=== PATIENT | male | born 1965 | race Caucasian/White ===

== ENCOUNTER → 2017-02-08 10:55 | Outpatient (CLI) | payer BC ==
[2016-07-14 08:43] VITALS: BMI 25.7
[~2017-02-08 10:55] MED LIST: CELEXA20 MG PO; FLOMAX0.4 MG PO; MIRALAX17 GM PO; MULTIPLE VITAMI1 TA1 PO; PROBIOTIC1 EAC1 PO; PROPRANOLOL HCL20 MG PO
== END | disposition home or self-care (01) ==
LOC: D.CT 10:55
DX: R10.9 Unspecified abdominal pain (principal)

== ENCOUNTER 2017-03-05 05:32 | Day surgery (SDC) | payer BC ==
[~2017-03-05] VITALS: Ht 190.5 cm; Wt 92.5 kg
--- NOTE | ~2017-03-05 | OP ---
PATIENT NAME: VERNA BARROW MEDICAL RECORD: [id number] :69 LOCATION:D[facility] ADMISSION DATE: SURGEON: RAFAEL LLAMAS MD DATE OF OPERATION: 03/05/2017 PREOPERATIVE DIAGNOSIS: Symptomatic gallstones. POSTOPERATIVE DIAGNOSES: Symptomatic gallstones with hepatomegaly and probable gallstone within the common bile duct, which was nonobstructing. Also, adhesions in the right lower quadrant from the patient's inguinal herniorrhaphy. PROCEDURES: 1. Laparoscopic cholecystectomy. 2. Intraoperative cholangiography without immediate surgeon interpretation. 3. 18-gauge core needle liver biopsies. SURGEON: Rafael Llamas MD. HOSPICE LIAISON: None. BLOOD LOSS: Minimal. ANESTHESIA: General. COMPLICATIONS: None. The risks, possible complications and alternatives to the procedure were explained to the patient. He elects to proceed. OPERATIVE COURSE: The patient was conveyed to the operating room on 03/05/2017. General anesthesia was induced by the anesthesia staff. The abdomen was sterilely prepped and draped. An incision was accomplished within the umbilicus. There was a small umbilical hernia, which was not incarcerated. I entered the peritoneal cavity through this umbilical hernia with a 12-mm trocar. CO2 insufflation was begun. Once a sufficient pneumoperitoneum had been achieved, a 5-mm trocar was inserted in the epigastrium. Another 5-mm trocar was inserted in the right upper quadrant. Another 5-mm trocar was inserted far laterally in the right upper quadrant. During insertion of the Veress needle and all trocars, there appeared to have been no injury to the bowels, any intraperitoneal or retroperitoneal structures. An abdominal survey was undertaken. There were some adhesions in the right lower quadrant. These were taken down sharply. An abdominal survey was undertaken. The indication for liver biopsy was hepatomegaly. I percutaneously accessed the right upper quadrant under laparoscopic guidance with an 18-gauge core needle liver biopsy device. Cores were obtained over the convexity of the liver. The biopsy sites were made hemostatic with the electrocautery. The gallbladder was grasped and retracted anteriorly. I advanced a cholangiogram trocar. I punctured the fundus of the gallbladder. I aspirated bile. I injected dye. Under real time fluoroscopy, static fluoroscopic images were obtained. These were sent to the radiologist. The radiologist called back in the room and confirmed that there was likely a stone in the cystic duct as well as a stone in the common bile duct. The common bile duct stone was, otherwise, not obstructing. OPERATIVE REPORT [id number] DANIALVERNA The cholangiogram trocar was removed. The gallbladder was grasped and retracted cephalad. The infundibulum was grasped and retracted laterally. Blunt dissection was begun in the triangle of Calot. One cystic artery and 1 cystic duct were identified. These were clipped multiply and divided between clips. The gallbladder was then excised from its bed in the liver. It was grasped and placed within Endobag retrieval device and withdrawn through the umbilical fascia defect. The 12-mm trocar was replaced and the abdomen reinsufflated. I irrigated and aspirated in the right upper quadrant. There was no bleeding even at a low pressure of 8. All the trocars were removed and the abdomen desufflated. The umbilical fascial defect was closed with a horizontal mattress of 0 Vicryl suture. The umbilical skin was closed with interrupted 4-0 Vicryl Rapide sutures. The other skin incisions were closed with interrupted intracuticular 3-0 Vicryls. Benzoin and Steri-Strips were applied. The patient was then extubated and conveyed to the post-anesthesia care unit where he was in stable condition. He will be dismissed home on a narcotic analgesic. I will see him in the office in 2-3 weeks. TRANSINT:[id number] Voice Confirmation ID: [id number] DOCUMENT ID: [id number] RAFAEL LLAMAS MD CC: GRECIA KEBEDE MD [id number] DICTATION DATE: 03/06/17917 SHOE IRONER: 03/06/171656 [facility] 03/05/17 [facility] [address] [place] [address]
--- NOTE | ~2017-03-05 | HP ---
PATIENT: VERNA BARROW MEDICAL RECORD: [id number] ACCOUNT: [id number] LOCATION:[facility] : 69 ADMISSION DATE: 03/05/17 HISTORY AND PHYSICAL EXAMINATION CHIEF COMPLAINT: Pain. HISTORY OF PRESENT ILLNESS: The patient has known gallstones. He has gastrointestinal issues including gastroparesis and also upper abdominal pain. I am going to plan for laparoscopic cholecystectomy and intraoperative cholangiogram and possible liver biopsy. The risks, possible complications and alternatives to procedure were explained to the patient. He elected to proceed. Discussion specifically included, but was not limited to, bleeding requiring emergency reoperation, infection, common ductal injury and an open procedure. HOME MEDICATIONS: Flomax, Prilosec, MiraLax, Celexa and Ultram. ALLERGIES: TO VALIUM AND PENICILLIN. PAST MEDICAL AND SURGICAL HISTORY: Gastroparesis, gastroesophageal reflux, arthritis, history of right inguinal hernia repair, migratory arthralgias, questionable sleep apnea, extremity injury. SOCIAL HISTORY: He is a smoker. REVIEW OF SYSTEMS: Negative for diabetes or thyroid problems. Review of systems is negative other than as is described above. PHYSICAL EXAMINATION: GENERAL: The patient does not appear acutely ill. He does not appear chronically ill. VITAL SIGNS: Reviewed. HEAD: External ears appear normal. EYES: Extraocular movements are intact. NECK: Trachea is midline. CHEST: No intercostal retractions. PULMONARY: Nonlabored, no stridor. ABDOMEN: Nontender. IMPRESSION: Symptomatic gallstones. PLAN: Laparoscopic cholecystectomy, intraoperative cholangiogram and possible liver biopsy. TRANSINT:[id number] Voice Confirmation ID: [id number] DOCUMENT ID: [id number] HISTORY AND PHYSICAL [id number] VERNA BARROW RAFAEL LLAMAS MD CC: GRECIA KEBEDE MD [id number] DICTATION DATE: 03/05/17 1013 LINEMAN A CLASS: 03/05/[address] [facility] [address] [place] [address]
[~2017-03-05 05:32] MED LIST changes: +ULTRAM50 MG PO
[2017-03-05 06:42] VITALS: BP 115/49; Ht 190.5 cm; Wt 92.5 kg
--- NOTE | 2017-03-05 09:13 | NUR ---
RADIOLOGY CALLS BREVING, SEE BREVINGS NOTES
--- NOTE | 2017-03-05 10:26 | NUR ---
PATIENT INSISTING ON RETURNING TO OUTPATIENT TO GO TO RESTROOM.
--- NOTE | 2017-03-05 12:27 | NUR ---
ROOM CHECK. DENIES URGE TO VOID AT THIS TIME. ENCOURAGED PO FLUIDS.
== END 2017-03-05 13:05 | disposition home or self-care (01) ==
LOC: D.OPS 05:32 → D.PAN 08:00 → D.OPS 09:15
DX: K80.20 Calculus of gallbladder without cholecystitis without obstruction (principal); R10.9 Unspecified abdominal pain; M94.0 Chondrocostal junction syndrome [Tietze]; F17.200 Nicotine dependence, unspecified, uncomplicated; K21.9 Gastro-esophageal reflux disease without esophagitis; G47.30 Sleep apnea, unspecified; Z01.812 Encounter for preprocedural laboratory examination

== ENCOUNTER → 2017-04-13 08:34 | Day surgery (SDC) | payer BC ==
[~2017-04-13] VITALS: Ht 190.5 cm; Wt 90.0 kg
--- NOTE | ~2017-04-13 | PRO ---
PATIENT:VERNA BARROW MEDICAL RECORD: [id number] : 69 LOCATION:[facility] ADMISSION DATE: 04/13/17 PROCEDURE PERFORMED BY: KIMBERLY GARSIA DO PROCEDURE DATE: 04/13/17 PROCEDURE: Endoscopic retrograde cholangiopancreatography with sphincterotomy. INDICATION: Previously identified bile duct stone and abnormal imaging of the bile duct on a past intraoperative cholangiogram. MEDICATIONS: The patient was under general anesthesia for the procedure. He was receiving Propofol for sedation and received a gram of Ancef prior to the procedure. ESTIMATED BLOOD LOSS: Minimal. COMPLICATIONS: None. FINDINGS: Informed consent was given. The patient was made comfortable with the above medication. After reaching an adequate level of sedation by slow IV push, the patient was placed in a semiprone position with a shoulder pad on the right side. The endoscope was then advanced direct visualization through the mouth down to the second portion of the duodenum where the ampulla was easily identified. Deep biliary cannulation was achieved with these. An initial cholangiogram appeared normal with a nondilated duct. The duct itself measured approximately 7 millimeters in diameter. There were no stones visualized on this examination. Contrast did fill up into the intrahepatic ducts without abnormality visualized. A small sphincterotomy was performed and a 8.5 millimeter balloon was swept through the duct multiple times without calculi retrieved. The catheter was removed from the duct and the scope was removed from the patient. The patient tolerated the procedure well. There were no complications. IMPRESSIONS: 1. Normal cholangiogram. 2. Status post endoscopic retrograde cholangiopancreatography with sphincterotomy. PLAN/RECOMMENDATIONS: 1. Discharge home when recovery parameters are met. 2. Continue current diet. 3. Continue current medications. 4. Follow up in GI clinic as needed. 5. No further workup needed of possible gallstones unless symptoms arise or abnormal liver enzymes are visualized. KIMBERLY GARSIA DO CC: [id number] DICTATION DATE: 04/13/172214 [facility] FURNACE OPERATOR: DEREK 04/13/172214 [facility] [address] [place] [id number]
[2017-04-13 09:42] LABS: BASOPHILS 0.2 % (0-2); EOSINOPHILS 1.6 % (0-7); HEMATOCRIT 46.7 % (42.0-54.0); HEMOGLOBIN 16.7 g/dL (13.5-17.5); IMMATURE GRANULOCYTES 0.3 % (0-5); MCH 33.6 pg (26.0-34.0); MCHC 35.8 g/dL (31.0-37.0); MEAN PLATELET VOLUME 10.4 fL (7.4-10.4); MONOCYTES 5.5 % (2-11); NEUTROPHILS 67.4 % (40-80); PLATELET COUNT 172 10x3/uL (130-400); RBC 4.97 10x6/uL (4.20-6.10); RDW 12.3 % (11.5-14.5); WBC 9.6 10x3/uL (4.8-10.8)
[2017-04-13 09:51] LABS: CALC OSMOLALITY 279 mosm/kg (275-300); CALCIUM 8.6 mg/dL (8.5-10.1); CARBON DIOXIDE 26.6 mmol/L (21.0-32.0); CHLORIDE - SERUM 104 mmol/L (98-107); GLUCOSE 95 mg/dL (74-106); POTASSIUM - SERUM 3.9 mmol/L (3.5-5.1); SODIUM 140 mmol/L (136-145); UREA NITROGEN 14 mg/dL (7-18); eGFR NON AFRICAN AMERICAN 84 mL/min (90-120)
[2017-04-13 10:15] VITALS: Ht 190.5 cm; Wt 90.0 kg
--- NOTE | 2017-04-13 11:47 | NUR ---
ERCP WITH BALLOON SWEEP NO STONE.
--- NOTE | 2017-04-13 11:59 | NUR ---
14ML CONTRAST USED AND 58 SECOND XRAY TIME.
--- NOTE | 2017-04-13 13:26 | NUR ---
1310-RECD TO ROOM FROM PACU. UP TO BATHROOM, VOIDED AND HAD BM. IV PATENT. RESP WITH EASE. COMPLAINS OF NAUSEA. ENCOURAGED TO BELCH AND PASS GAS. 1320- VOSATINDER HERE. ORDERS FOR ANTONY HYMAN.
--- NOTE | 2017-04-13 13:39 | NUR ---
1335-ZOFRAN 8MG IVP GIVEN.
--- NOTE | 2017-04-13 19:09 | NUR ---
1420-FEELING BETTER. IV D/C. DRESSED. DISCHARGED HOME.
== END | disposition home or self-care (01) ==
LOC: D.OPS 08:34
PROVIDERS: Anesthesiology
DX: R93.2 Abnormal findings on diagnostic imaging of liver and biliary tract (principal); Z01.812 Encounter for preprocedural laboratory examination

== ENCOUNTER 2017-04-16 11:33 | Inpatient (IN) | payer BC ==
[~2017-04-16] VITALS: Ht 190.5 cm; Wt 88.2 kg
[2017-04-16 12:57] LABS: BASOPHILS 0.1 % (0-2); EOSINOPHILS 0.2 % (0-7); HEMATOCRIT 47.6 % (42.0-54.0); HEMOGLOBIN 17.5 g/dL (13.5-17.5); IMMATURE GRANULOCYTES 0.4 % (0-5); LYMPHOCYTES 13.1 % (15-50); MCH 33.9 pg (26.0-34.0); MCHC 36.8 g/dL (31.0-37.0); MCV 92.2 fL (80.0-100.0); MEAN PLATELET VOLUME 10.8 fL (7.4-10.4); MONOCYTES 7.2 % (2-11); RBC 5.16 10x6/uL (4.20-6.10); RDW 12.1 % (11.5-14.5); WBC 16.9 10x3/uL (4.8-10.8)
[2017-04-16 13:01] LABS: PLATELET COUNT 209 10x3/uL (130-400)
[2017-04-16 13:06] LABS: AMYLASE - SERUM 33 U/L (25-115); CALC OSMOLALITY 271 mosm/kg (275-300); CALCIUM 8.9 mg/dL (8.5-10.1); CARBON DIOXIDE 24.7 mmol/L (21.0-32.0); CHLORIDE - SERUM 97 mmol/L (98-107); CREATININE - SERUM 1.1 mg/dL (0.6-1.3); GLUCOSE 108 mg/dL (74-106); LIPASE 226 U/L (73-393); POTASSIUM - SERUM 3.2 mmol/L (3.5-5.1); SODIUM 136 mmol/L (136-145); UREA NITROGEN 9 mg/dL (7-18); eGFR NON AFRICAN AMERICAN 75 mL/min (90-120)
[2017-04-16 13:06] LABS: INR 1.03 (0.85-1.17); PROTIME 13.3 SECONDS (11.6-15.0)
[2017-04-16 13:50] LABS: APPEARANCE CLEAR (CLEAR); BILIRUBIN NEGATIVE (NEGATIVE); COLOR YELLOW (YELLOW); GLUCOSE NEGATIVE (NEGATIVE); KETONE MODERATE mg/dL (NEGATIVE); LEUKOCYTE ESTERASE NEGATIVE (NEGATIVE); NITRITE NEGATIVE (NEGATIVE); PROTEIN NEGATIVE (NEGATIVE); UROBILINOGEN NORMAL (NORMAL)
--- NOTE | 2017-04-16 15:05 | NUR ---
PT RECIEVED TO ROOM FROM ER. RR EVEN AND UNLABORED, FAMILY AT BEDSIDE. PT REPORTS PAIN AT 2/10 AFTER HE RECIEVED DILUDID IN ER. NS STARTED AT 150ML/HR PER ORDERS. ADMISSION ASSESSMENT AND HX COMPELTED. PT DENIES OTHER NEEDS AT THIS TIME, WILL CTM.
[2017-04-16 15:25] VITALS: BP 120/94; BMI 24.3
[2017-04-16 16:41] VITALS: BP 120/74
--- NOTE | 2017-04-16 18:35 | NUR ---
PT RESTING QUIETLY, RR EVEN AND UNLABORED. PT DENIES PAIN AND NEEDS AT THIS TIME. WILL GIVE REPORT ON PT CONDTION SINCE ADMISSION.
--- NOTE | 2017-04-16 19:57 | NUR ---
PT C/O PAIN TO ABD, ASKING FOR PAIN MEDS. DILAUDID SENIOR PROJECT MANAGER ENGINEERING INITIATED.
[2017-04-16 20:00] VITALS: BP 112/65; BP 126/84
--- NOTE | 2017-04-16 21:16 | NUR ---
NEW BAG NS HUNG AT 100 CC/HR, PT STATED THAT DILAUDID SUPERVISOR THROWING DEPARTMENT IS HELPING WITH PAIN CONTROL.
[2017-04-17] VITALS: BP 112/65
--- NOTE | 2017-04-17 00:33 | NUR ---
SUPERVISOR ALUMINUM FABRICATION AT BEDSIDE TO OBTAIN VITALS, CALL LIGHT IN REACH. WILL CONTINUE WITH PLAN OF CARE.
--- NOTE | 2017-04-17 02:25 | NUR ---
RESTING WITH EYES CLOSED, RESPERATIONS EVEN, NO S/S DISTRESS NOTED.
[2017-04-17 04:00] VITALS: BP 133/73
[2017-04-17 11:15] LABS: BASOPHILS 0.1 % (0-2); EOSINOPHILS 1.1 % (0-7); HEMATOCRIT 42.6 % (42.0-54.0); IMMATURE GRANULOCYTES 0.2 % (0-5); LYMPHOCYTES 18.2 % (15-50); MCH 33.3 pg (26.0-34.0); MCHC 35.2 g/dL (31.0-37.0); MEAN PLATELET VOLUME 10.4 fL (7.4-10.4); MONOCYTES 7.3 % (2-11); NEUTROPHILS 73.1 % (40-80); PLATELET COUNT 177 10x3/uL (130-400); RBC 4.51 10x6/uL (4.20-6.10); RDW 12.3 % (11.5-14.5)
[2017-04-17 11:37] LABS: WBC 9.8 10x3/uL (4.8-10.8)
[2017-04-17 11:38] LABS: MCV 94.5 fL (80.0-100.0)
[2017-04-17 11:44] LABS: ALBUMIN 2.9 g/dL (3.4-5.0); ALKALINE PHOSPHATASE 171 U/L (46-116); ALT (SGPT) 86 U/L (10-68); AMYLASE - SERUM 32 U/L (25-115); CALC OSMOLALITY 267 mosm/kg (275-300); CALCIUM 8.4 mg/dL (8.5-10.1); CARBON DIOXIDE 25.9 mmol/L (21.0-32.0); CHLORIDE - SERUM 101 mmol/L (98-107); GLUCOSE 94 mg/dL (74-106); LIPASE 235 U/L (73-393); POTASSIUM - SERUM 3.5 mmol/L (3.5-5.1); PROTEIN - SERUM 6.5 g/dL (6.4-8.2); SODIUM 135 mmol/L (136-145); UREA NITROGEN 7 mg/dL (7-18)
[2017-04-17 11:46] VITALS: Ht 190.5 cm; Wt 88.2 kg
[2017-04-17 11:49] LABS: CREATININE - SERUM 0.8 mg/dL (0.6-1.3); eGFR NON AFRICAN AMERICAN > 90 mL/min (90-120)
[2017-04-17 13:08] VITALS: BP 113/73
[2017-04-17 13:09] VITALS: BP 111/73
[2017-04-17 16:30] VITALS: BP 124/82
--- NOTE | 2017-04-17 17:47 | NUR ---
THIS SHIFT HAS BEEN UP IN ROOM. HAS EATEN SOLID FOODS. BUT DOES CO PAIN AFTERWARDS. NO EMESIS. DISCHARGE HAS BEEN WRITTEN BUT DELIO SAYS IT IS OK FOR HIM TO STAY TONIGHT.
--- NOTE | 2017-04-17 19:40 | NUR ---
ASESSMENT COMPLETE, A&O. RESPERATIONS EVEN ON RA. IV TO LEFT WRIST WITH NS AT 150 CC/HR AND DIALUDID SLEEP LAB TECHNOLOGIST IN USE FOR PAIN CONTROLL. PT DENIES NEEDS AT THIS TIME, BED LOW, CL IN REACH.
[2017-04-17 20:00] VITALS: BP 136/87
--- NOTE | 2017-04-18 03:41 | NUR ---
REFINERY OPERATOR VAPOR RECOVERY UNIT AT BED SIDE, BED LOW, CL IN REACH, WILL CONT TO MONITOR.
[2017-04-18 04:00] VITALS: BP 138/86
--- NOTE | 2017-04-18 04:26 | NUR ---
RESTING WITH EYES CLOSED, RESPERATIONS NO S/S DISTRESS NOTED.
--- NOTE | 2017-04-18 08:01 | NUR ---
AM ROUNDS - PT IS AWAKE IN BED. IV TO LEFT WRIST, NS AT 125CC/HR. ADMIN PROG COORD DILAUDID. SIDE RAILS UP X2, BED RAILS UP X2, BED AT LOWEST POSITON. PT IS A&O. NO NEEDS AT THIS TIME. WILL CONTINUE TO MONITOR
--- NOTE | 2017-04-18 10:42 | NUR ---
MORNING MEDICATION GIVEN. PT TOLERATED WELL
--- NOTE | 2017-04-18 10:43 | NUR ---
0900 - WRITTEN AND VERBAL D/C INSTRUCTIONS GIVEN TO PT. IV IN LEFT WRIST D/C, CATH TIP INTACT. 2X2 APPLIED AND SECURED WITH TAPE. PT TOLERATED WELL. PT LEFT FLOOR VIA WHEELCHAIR WITH FAMILY AND VOLUNTEER. WILL D/C
== END 2017-04-18 11:08 | disposition home or self-care (01) | DRG 440 ==
LOC: D.ER 11:33 → D.M2 14:13
PROVIDERS: Emergency Medicine; Nurse Practitioner Family; ADMIT Family Medicine
DX: K85.90 Acute pancreatitis without necrosis or infection, unspecified (principal); F41.9 Anxiety disorder, unspecified; Z72.0 Tobacco use